=== PATIENT | male | born 1995 | race Caucasian/White ===

== ENCOUNTER 2022-01-21 08:40 | Day surgery (SDC) | payer OTHER ==
[~2022-01-21] VITALS: Ht 172.7 cm; Wt 73.0 kg
[~2022-01-21 08:40] MED LIST: NS 1,000 ML IV ONE; OMEP1CAP73 PO
[2022-01-21] MEDS ORDERED: LIDOCAINE 2% 100MG/5ML SDV (FOR ANES.) As Ordered ONE (08:44)
[2022-01-21] MEDS ORDERED: propofoL 200 MG/20 ML VIAL As Ordered ONE (08:44)
[2022-01-21] MEDS ORDERED: fentaNYL 100 MCG/2 ML INJECTION As Ordered ONE (08:44)
[2022-01-21 10:25] VITALS: BP 151/64
== END 2022-01-21 10:39 | disposition home or self-care (01) ==
LOC: M OPP 08:40
PROVIDERS: ATTEND Internal Medicine Gastroenterology
DX: K22.89 Other specified disease of esophagus (principal); R12 Heartburn
CPT/HCPCS: 43239; 88305; J3010